=== PATIENT | male | born 1990 | race African-American/Black ===

== ENCOUNTER → 2020-10-23 13:38 | Outpatient (CLI) | payer OTHER, SELFPAY ==
[2020-10-23 16:55] LABS: COVID19 -Nasal RAPID Negative (Negative)
== END ==
PROVIDERS: PCP Student in an Organized Health Care Education/Training Program; Visit Provider Student in an Organized Health Care Education/Training Program
DX: Z20.822 Contact with and (suspected) exposure to COVID-19 (principal)
CPT/HCPCS: 87635

== ENCOUNTER 2020-10-25 12:12 | Day surgery (SDC) | payer OTHER, SELFPAY ==
[2020-10-25] VITALS (7 sets, daily range): BP systolic 119–127; BP diastolic 76–84; PULSE 60–76; RESP 10–18; TEMP 36.1–36.7; O2SAT 98–100; BMI 34.7
--- NOTE | 2020-10-25 | PATH_ITS ---
[facility] Accession Number: [id number] . 01 Material submitted: . PART A: colon - ASCENDING COLON POLYP PART B: colon - RECTAL/SIGMOID POLYP . 02 Diagnosis: A. Ascending Colon, Polyp, Biopsy: Sessile serrated adenoma. . B. Rectosigmoid, Polyp, Biopsy: Hyperplastic polyp. MRV 10/30/2020 1033 Local . 02 Electronically signed: . Jesenia Salazar MD, Pathologist NPI- [id number] . 01 Gross description: . Part A: ASCENDING COLON POLYP: Received in formalin is 1 fragment(s) of rosen, soft tissue measuring 1.0 x 0.5 x 0.4 cm submitted entirely in 1 cassette(s) Part B: RECTAL/SIGMOID POLYP: Received in formalin is 1 fragment(s) of rosen, soft tissue measuring 0.7 x 0.2 x 0.2 cm submitted entirely in 1 cassette(s) /LEILA 10/26/20202022 Local . 02 Pathologist provided ICD-10: D12.2 . 02 CPT . 872806, 196919 Performed at: [address] [facility] [address] [place] [id number] MD David Mao MD Phone: [phone] Performed at: 02 [facility] [address] [place], [place] [id number] MD Jesenia Salazar MD Phone: [phone]
--- NOTE | 2020-10-25 08:07 | PM.HP.1 ---
History of Present Illness History of Present Illness Date Patient Seen: 10/25/20 Chief complaint: DX COLONOSCOPY W/POSS BX Narrative: 30-year-old male seen at our office on 09/13/2020 due to constipation and hematochezia. He is here for further evaluation Meds Home Medications and Allergies Home Medications Medication Instructions Recorded Confirmed Type No Known Home Medications 10/25/20 10/25/20 History Allergies Allergy/AdvReac Type Severity Reaction Status Date / Time No Known Drug Allergies Allergy Verified 10/25/20 12:24 Exam Narrative Exam Narrative: General: Patient is obese, not in apparent distress Cardiovascular: Regular rate and rhythm, no murmurs, rubs, or gallops; no evidence of edema; no palpable abdominal aortic aneurysm Gastrointestinal: Normoactive bowel sounds, soft, nontender, nondistended, no rebound tenderness, no hepatosplenomegaly, no evidence of hernia Assessment & Plan Assessment & Plan narrative: 30-year-old male with a history of constipation and hematochezia here for further evaluation Regarding the procedure(s), the risks and potential complications, benefits, and alternatives (including not doing the procedure) were discussed with the patient. The risks include but are not limited to bleeding, splenic injury, infection, perforation which may require surgical intervention, missed lesions, and adverse reactions to sedative medicines. After a question and answer period, the patient agreed to proceed with the procedure(s) and gives informed consent.
[2020-10-25] MEDS: SODIUM CHLORIDE 0.9% 1,000 ML 70 ML IV (12:40)
--- NOTE | 2020-10-25 12:57 | PM.OP.ENDO ---
Operative Date/Time/Diagnoses Date of procedure: 10/25/20 Procedure Notes Procedure in detail: Surgeon: Bony Basurto MD Procedure: Colonoscopy with polypectomy Preoperative diagnosis: Rectal bleeding and constipation Postoperative diagnosis: Colon polyps x2 status post polypectomy; grade 1 internal hemorrhoids Medications: Conscious sedation using 5 mg IV of Midazolam and 150 mcg IV of Fentanyl Preanesthesia Assessment An H and P was performed/updated and the Px?s ASA class is 2. The procedure was discussed in detail with the patient. The potential risks and complications including infection, bleeding, missed lesions, perforation, need for surgery in case of perforation, prolonged hospital stay, and were explained. A brief question and answer period was allotted and once all questions were answered, informed consent was obtained. The patient was brought back to the procedure room and placed on standard monitoring. The patient?s vital signs were monitored continuously throughout the entire procedure. Prior to starting, a timeout was performed to confirm the patient?s identity, allergies, medications, and procedure. Procedure in detail The patient was placed in left lateral decubitus position and once adequate sedation was obtained a ELMER was performed. The digital rectal examination did not reveal any palpable lesions. The tip of the colonoscope was placed in the anal canal and advanced without difficulty all the way to the cecum which was identified by the appendiceal orifice and the ileocecal valve. The terminal ileum was intubated to a distance of 5 cm from the ileocecal valve and the mucosa appeared normal. The colonoscope was brought back to the cecum and careful examination of all rosas of the colon was performed with irrigation of any residual stool. In the ascending colon, there was note of a an 8 mm sessile polyp which was removed by means of cold snare. Resection and retrieval was complete with minimal bleeding In the rectosigmoid colon, there was note of a 2 mm sessile polyp which was removed by means of cold Jumbo forceps. Resection and retrieval was complete with minimal bleeding Retroflexion was performed in the rectum which revealed grade 1 internal hemorrhoids The patient tolerated the procedure well and will be brought back to the recovery area to be discharged once criteria are met. The prep was judged to be good and adequate to identify polyps less than 5 mm. The withdrawal time was 9 minutes. The total physician intraservice time was 14 minutes. Complications There were no complications and estimated blood loss was minimal. Recommendations: High-fiber diet MiraLax 17 g as needed for constipation Follow up pathology results Repeat colonoscopy in 5 or 7 years if polyps are adenomatous. If polyps are not adenomatous, repeat colonoscopy at age 52 per current guidelines Call our office ([facility]) to schedule follow-up with Dr. Rizo if you have any persistent symptoms An emergency contact number was given to the patient for any complications related to the procedure
[2020-10-25] MEDS: MIDAZOLAM 5 MG/5 ML VIAL IV (13:07)
[2020-10-25] MEDS: fentaNYL 250 MCG/5 ML INJ IV (13:07)
--- NOTE | 2020-10-25 13:59 | SUR.PHASEII ---
Ride called as wanting to go, belly soft no nausea, pt left when ready and left in stable condition.
== END 2020-10-25 13:59 | disposition home or self-care (01) ==
PROVIDERS: PCP Student in an Organized Health Care Education/Training Program; Referring Provider Internal Medicine Gastroenterology; Visit Provider Internal Medicine Gastroenterology
PROC: 0DJD8ZZ Inspection of Lower Intestinal Tract, Via Natural or Artificial Opening Endoscopic (ICD-10-PCS; CPT 45378; principal; 2020-10-25 13:30)
DX: K64.0 First degree hemorrhoids (principal); K59.00 Constipation, unspecified; D12.2 Benign neoplasm of ascending colon
CPT/HCPCS: 45385; 45380; J2250; J3010